=== PATIENT | female | born 1995 | race Two or more races ===

== ENCOUNTER 2017-01-02 12:04 | Emergency (ER) | payer MEDICAID ==
[2017-01-02 12:25] VITALS: RESP 16; TEMP 98.2; O2SAT 97
--- NOTE | 2017-01-02 12:47 | CPEKG ---
Heart Rate: 83 RR Interval: 723 P-R Interval: 140 QRSD Interval: 82 QT Interval: 344 QTC Interval: 405 P [place]: 48 QRS [place]: 88 T Wave [place]: -1 EKG Severity - NORMAL ECG - EKG Impression: SINUS RHYTHM Electronically Signed By: Deshawn Brennan 03-Jan-2017 00:25:14
--- NOTE | 2017-01-02 13:04 | EDPHY ---
H & P Stated Complaint: felt faint, vision with "black spots", tingling in arms Source: Patient Exam Limitations: No limitations - Personal History Current Tetanus Diphtheria and Acellular Pertussis (TDAP): Yes Tetanus Vaccine Date: 2015 - Medical/Surgical History Hx Asthma: No Hx Chronic Respiratory Disease: No Hx Diabetes: No Hx Cardiac Disease: No Hx Renal Disease: No Hx Cirrhosis: No Hx Alcoholism: No Hx HIV/AIDS: No Hx Splenectomy or Spleen Trauma: No Other PMH: wisdom teeth 11/2016 - Social History Smoking Status: Never smoked Time Seen by Provider: 01/02/17 12:25 HPI/ROS: CHIEF COMPLAINT: facial swelling, presyncope HISTORY OF PRESENT ILLNESS: 21-year-old female presents emergency department complaining of right-sided facial swelling that she noticed this morning upon awakening that has worsened as the day has gone on. Patient had her wisdom teeth removed 2.5 weeks ago and has not had any problems. At work today she was walking, felt lightheaded and nauseous vision blurred, felt like she was going to pass out. She sat down and had tingling in her hands for a few minutes that resolved. Patient denies chest pain or shortness of breath. She denies difficulty swallowing, she reports mild pain with opening her mouth and biting down. She has an appointment with her dentist tomorrow. Patient denies fevers or chills. REVIEW OF SYSTEMS: A comprehensive 10 point review of systems is otherwise negative aside from elements mentioned in the history of present illness. (Yecenia Mcelroy) - Physical Exam Exam: Physical Exam Gen: Alert and Oriented, NAD HEENT: PERRL, moist mucous membranes, opens mouth without difficulty, no trismus , no dental abscess visible, right-sided mandibular swelling and tenderness to palpation, no parotid gland swelling or tenderness, no cervical lymphadenopathy. NECK: no meningismus CV: regular rate and regular rhythm PULM: CTAB, no wheezes ABDOMEN: soft, non tender to palpation, BS present BACK: No CVA tenderness NEURO: Neurologically grossly intact EXTREMITIES: normal appearing SKIN: no rash or break in skin on exposed skin PSYCH: answers questions appropriately. (Yecenia Mcelroy) Constitutional: Initial Vital Signs Temperature (C) 36.8 C 01/02/17 12:15 Heart Rate 84 01/02/17 12:15 Respiratory Rate 16 01/02/17 12:15 Blood Pressure 118/68 01/02/17 12:15 O2 Sat (%) 97 01/02/17 12:15 O2 Delivery Mode Room Air Allergies/Adverse Reactions: No Known Allergies Allergy (Verified 01/02/17 12:20) Home Medications: Medication Instructions Recorded Amoxicillin/Clavulanate Pot 875 mg PO BID #20 tab 01/02/17 [Augmentin 875Mg] Hydrocodone/APAP 5/325 [[place] 1 tab PO Q4H PRN #10 tab 01/02/17 5/325] Medical Decision Making - Diagnostics EKG Interpretation: EKG shows normal sinus rhythm, good R-wave progression, normal axis, no ST or T- wave abnormalities (Yecenia Mcelroy) ED Course/Re-evaluation: 21-year-old female presents with right-sided facial swelling and presyncopal symptoms that started this morning. Patient had her wisdom teeth removed 2 and half weeks ago. Patient states facial swelling has become worse as the day has gone on. With tenderness. Patient is afebrile, she has a mildly elevated white blood cell count at 10,800, normal chemistry panel and negative test. Patient was given 1 L of normal saline, says 400 mg of ibuprofen and 875 mg of Augmentin. After discussing the case with Dr. Lamar and speaking to the patient, we will place her on Augmentin. She has a follow-up appointment with her dentist tomorrow morning at 8:00 a.m.. Patient has been given strict return precautions for worsening symptoms, difficulty breathing, difficulty swallowing, unable to open her, other questions or concerns. Patient is comfortable with this plan. (Yecenia Mcelroy) Differential Diagnosis: Diagnosis considered but not limited to dental abscess, Kentrell's angina, parotid abscess (Yecenia Mcelroy) Other Provider: I did evaluate this patient. She has what appears to be lower dental abscess with swelling. No parotid gland tenderness or swelling. We considered a CT scan but she is following up with her oral surgeon tomorrow who performed the procedure. We decided to start antibiotics and defer until that point. She does not have any difficulty with her airway. (Ramón Lamar) - Data Points Laboratory Results: Laboratory Results 01/02/17 12:35 01/02/17 12:35 01/02/17 12:35 WBC 10.89 H 10^3/uL (3.80-9.50) RBC 4.54 10^6/uL (4.18-5.33) Hgb 13.1 g/dL (12.6-16.3) Hct 38.2 % (38.0-47.0) MCV 84.1 fL (81.5-99.8) MCH 28.9 pg (27.9-34.1) MCHC 34.3 g/dL (32.4-36.7) RDW 13.4 % (11.5-15.2) Plt Count 208 10^3/uL (150-400) MPV 10.1 fL (8.7-11.7) Neut % (Auto) 77.1 H % (39.3-74.2) Lymph % (Auto) 16.0 % (15.0-45.0) [place] % (Auto) 5.8 % (4.5-13.0) Eos % (Auto) 0.5 L % (0.6-7.6) Baso % (Auto) 0.2 L % (0.3-1.7) Nucleat RBC Rel Count 0.0 % (0.0-0.2) Absolute Neuts (auto) 8.41 H 10^3/uL (1.70-6.50) Absolute Lymphs (auto) 1.74 10^3/uL (1.00-3.00) Absolute Monos (auto) 0.63 10^3/uL (0.30-0.80) Absolute Eos (auto) 0.05 10^3/uL (0.03-0.40) Absolute Basos (auto) 0.02 10^3/uL (0.02-0.10) Absolute Nucleated RBC 0.00 10^3/uL (0-0.01) Immature Gran % 0.4 % (0.0-1.1) Immature Gran # 0.04 10^3/uL (0.00-0.10) Sodium 142 mEq/L (134-144) Potassium 3.6 mEq/L (3.5-5.2) Chloride 108 mEq/L (97-110) Carbon Dioxide 21 L mEq/l (22-31) Anion Gap 13 mEq/L (8-16) BUN 7 mg/dL (7-23) Creatinine 0.6 mg/dL (0.6-1.0) Estimated GFR > 60 Glucose 73 mg/dL (70-100) Calcium 9.3 mg/dL (8.5-10.4) Beta HCG, Qual NEGATIVE Medications Given: Discontinued Medications Amoxicillin/Clavulanate Potassium (Augmentin 875mg) 875 mg PO EDNOW ONE PRN Reason: Protocol Stop: 01/02/17 13:34 Last Admin: 01/02/17 14:11 Dose: 875 mg Ibuprofen (Motrin) 400 mg PO EDNOW ONE Stop: 01/02/17 13:33 Last Admin: 01/02/17 14:11 Dose: 400 mg Departure - Departure Disposition: Home, Routine, Self-Care Clinical Impression: Facial swelling, Dental infection Condition: Good Instructions: Hydrocodone/Acetaminophen (By mouth), Amoxicillin (By mouth), Dental Abscess (ED) Additional Instructions: Take your antibiotics as prescribed, warm compresses to right side of your face 5 times a day for 10 minutes. Take 400 mg of ibuprofen every 8 hours with food for pain, take [place] for severe pain. Referrals: your, dentist [Other] - As per Instructions Prescriptions: Amoxicillin/Clavulanate Pot [Augmentin 875Mg] 875 mg PO BID #20 tab Hydrocodone/APAP 5/325 [[place] 5/325] 1 tab PO Q4H PRN #10 tab PRN Reason: Pain, Moderate
[2017-01-02 13:09] LABS: % IMMATURE GRANULYOCYTES 0.4 % (0.0-1.1); ABSOLUTE IMMATURE GRANULOCYTES 0.04 10^3/uL (0.00-0.10); ADD DIFF? NO; ADD MORPH? NO; ADD SCAN? NO; ATYPICAL LYMPHOCYTE FLAG 10 (0-99); FRAGMENT RBC FLAG 0 (0-99); HEMATOCRIT 38.2 % (38.0-47.0); HEMOGLOBIN 13.1 g/dL (12.6-16.3); LEFT SHIFT FLG 0 (0-99); LIPEMIA HEMOLYSIS FLAG 90 (0-99); MEAN CELL HEMOGLOBIN 28.9 pg (27.9-34.1); MEAN CELL HEMOGLOBIN CONCENTR. 34.3 g/dL (32.4-36.7); MEAN CELL VOLUME 84.1 fL (81.5-99.8); MEAN PLATELET VOLUME 10.1 fL (8.7-11.7); PLATELET CLUMPS FLAG 0 (0-99); PLATELET COUNT 208 10^3/uL (150-400); RED BLOOD CELL COUNT 4.54 10^6/uL (4.18-5.33); RED CELL DISTRIBUTION WIDTH 13.4 % (11.5-15.2)
[2017-01-02] MEDS ORDERED: IBUPROFEN 600 MG TAB PO ONE (13:32)
[2017-01-02] MEDS ORDERED: AMOXICILLIN/CLAVULANATE POT 875/125 MG TAB PO ONE (13:33)
[2017-01-02 13:58] LABS: ANION GAP 13 mEq/L (8-16); CALCIUM 9.3 mg/dL (8.5-10.4); CARBON DIOXIDE 21 mEq/l (22-31); CHLORIDE 108 mEq/L (97-110); CREATININE 0.6 mg/dL (0.6-1.0); GLOMERULAR FILTRATION RATE > 60; GLUCOSE 73 mg/dL (70-100); POTASSIUM 3.6 mEq/L (3.5-5.2); SODIUM 142 mEq/L (134-144)
[2017-01-02] MEDS ORDERED: IBUPROFEN 200 MG TAB PO ONE (14:03)
[2017-01-02 14:11] VITALS: BP 103/62; PULSE 87
== END 2017-01-02 14:10 | disposition home or self-care (01) ==
DX: R22.0 Localized swelling, mass and lump, head (principal); K04.7 Periapical abscess without sinus